=== PATIENT | female | born 1955 | race Caucasian/White ===

== ENCOUNTER 2025-01-31 07:23 | Observation (INO) | payer BC ==
[~2025-01-31] VITALS: Ht 152.4 cm; Wt 58.0 kg
[~2025-01-31 07:23] MED LIST: ALBU90OI INH; ASPI81CH PO; Inderal80 MG PO; TRAM50 PO
[2025-01-31] MEDS ORDERED: Diltiazem HCl 5 MG / ML 5ML Vial IV ONE (07:30)
[2025-01-31] MEDS ORDERED: NS 1,000 ML IV SCH (07:30)
[2025-01-31 07:38] LABS: BASOPHILS ABSOLUTE AUTO 0.07 K/mm3 (0.00-0.23); BASOPHILS PERCENT AUTO 1 % (0-2); EOSINOPHILS ABSOLUTE AUTO 0.09 K/mm3 (0.00-0.68); EOSINOPHILS PERCENT AUTO 1 % (0-6); Hematocrit 40.3 % (33.0-51.0); Hemoglobin 13.4 g/dL (11.5-16.0); IMMATURE GRAN ABSOLUTE AUTO 0.03 K/mm3 (0.00-0.10); IMMATURE GRAN PERCENT AUTO 0 % (0-1); LYMPHOCYTES ABSOLUTE AUTO 4.18 K/mm3 (0.84-5.20); LYMPHOCYTES PERCENT AUTO 29 % (21-46); MONOCYTES ABSOLUTE AUTO 0.74 K/mm3 (0.16-1.47); MONOCYTES PERCENT AUTO 5 % (4-13); Mean Corpuscular HGB Conc 33.3 g/dL (31.5-36.5); Mean Corpuscular Volume 93 fL (80-100); NEUTROPHILS ABSOLUTE AUTO 9.32 K/mm3 (1.96-9.15); NEUTROPHILS PERCENT AUTO 65 % (41-73); NRBC ABSOLUTE 0.00 K/mm3 (0.00-0.02); NRBC Auto 0.0 /100 WBC (0.0-0.2); Platelet Count 315 K/mm3 (150-400); RDW Coefficient Variation 12.8 % (11.7-14.2); RDW Standard Deviation 44.1 fL (35.1-46.3)
[2025-01-31 07:52] LABS: Anion Gap 7.0 mmol/L (3-11); Blood Urea Nitrogen 10.0 mg/dL (8-24); CO2, Blood 29.0 mmol/L (21-32); Calcium, Blood 8.7 mg/dL (8.5-10.1); Chloride, Blood 103.0 mmol/L (98-108); Creatinine, Blood 0.71 mg/dL (0.40-1.00); Glucose, Blood 121.0 mg/dL (70-99); Potassium, Blood 3.3 mmol/L (3.5-5.5); Sodium, Blood 136.0 mmol/L (136-145)
[2025-01-31] MEDS ORDERED: NS 1,000 ML IV ONE (12:04)
[2025-01-31] MEDS ORDERED: BUDESONIDE-FO10.2 G2 INH (12:55)
[2025-01-31] MEDS ORDERED: LISINOPRIL-HCT1 EAC1 PO (12:56)
[2025-01-31] MEDS ORDERED: MELO7.5 PO (12:56)
[2025-01-31 13:38] VITALS: BP 153/93
[2025-01-31] MEDS ORDERED: Formoterol/Mometasone MDI 5/200 mcg 13 GM INH SCH (14:25)
[2025-01-31 16:12] VITALS: BP 158/93
--- NOTE | 2025-01-31 18:44 | NUR ---
ADMIT NOTE/SHIFT SUMMARY PT A&OX4, VSS. PT STATES HER BREATHING IS SO MUCH BETTER AFTER ADENOSINE IN ER. TELEMETRY SHOWS NSR, HR 80'S-90'S. DENIES CP. ECHO SCHEDULED FOR AM. FAMILY IN ROOM MOST OF SHIFT. PT DENIES ANY NEEDS. ORIENTED TO ROOM, CALL LIGHT. RESTING IN BED, CALL LIGHT IN REACH.
[2025-01-31] MEDS ORDERED: Misc. Inpatient Respiratory Med INH SCH (20:00)
[2025-01-31] MEDS ORDERED: Albuterol 2.5 MG/3 ML VIAL INH PRN (20:00)
[2025-01-31 20:10] VITALS: BP 132/77
[2025-01-31 23:29] VITALS: BP 112/64
[2025-02-01 03:26] LABS: BASOPHILS ABSOLUTE AUTO 0.05 K/mm3 (0.00-0.23); BASOPHILS PERCENT AUTO 1 % (0-2); EOSINOPHILS ABSOLUTE AUTO 0.05 K/mm3 (0.00-0.68); EOSINOPHILS PERCENT AUTO 1 % (0-6); Hematocrit 35.4 % (33.0-51.0); Hemoglobin 11.9 g/dL (11.5-16.0); IMMATURE GRAN ABSOLUTE AUTO 0.01 K/mm3 (0.00-0.10); IMMATURE GRAN PERCENT AUTO 0 % (0-1); LYMPHOCYTES ABSOLUTE AUTO 2.78 K/mm3 (0.84-5.20); LYMPHOCYTES PERCENT AUTO 34 % (21-46); MONOCYTES ABSOLUTE AUTO 0.51 K/mm3 (0.16-1.47); MONOCYTES PERCENT AUTO 6 % (4-13); Mean Corpuscular HGB Conc 33.6 g/dL (31.5-36.5); Mean Corpuscular Volume 94 fL (80-100); NEUTROPHILS ABSOLUTE AUTO 4.78 K/mm3 (1.96-9.15); NEUTROPHILS PERCENT AUTO 59 % (41-73); NRBC ABSOLUTE 0.00 K/mm3 (0.00-0.02); NRBC Auto 0.0 /100 WBC (0.0-0.2); Platelet Count 276 K/mm3 (150-400); RDW Coefficient Variation 12.9 % (11.7-14.2); RDW Standard Deviation 44.4 fL (35.1-46.3)
[2025-02-01 03:41] LABS: Anion Gap 7.0 mmol/L (3-11); Blood Urea Nitrogen 12.0 mg/dL (8-24); CO2, Blood 28.0 mmol/L (21-32); Calcium, Blood 8.7 mg/dL (8.5-10.1); Chloride, Blood 105.0 mmol/L (98-108); Creatinine, Blood 0.64 mg/dL (0.40-1.00); Glucose, Blood 76.0 mg/dL (70-99); Magnesium, Blood 2.3 mg/dL (1.6-2.4); Potassium, Blood 3.7 mmol/L (3.5-5.5); Sodium, Blood 136.0 mmol/L (136-145)
[2025-02-01 03:46] VITALS: BP 112/71
--- NOTE | 2025-02-01 05:31 | NUR ---
SHIFT SUMMARY PT ALERT AND ORIENTED X 4. DAUGHTER AT BEDSIDE THIS SHIFT. PT IN NSR WITH HR IN 50S-70S. DENIES CP/PRESSURE. PT DENIES SOB. PT REMAINE ON RA WITH SPO2 >90%. VSS. PT DENIES PAIN. ECHO TO BE DONE THIS AM WITH POSSIBLE DISCHARGE. PT WITH CALL BLAIR WITHIN REACH. ABLE TO MAKE NEEDS KNOWN.
[2025-02-01 07:30] VITALS: BP 113/66
--- NOTE | 2025-02-01 08:53 | NUR ---
ASSUMPTION OF CARE: PATIENT IS A/O X 4 ABLE TO MAKE NEEDS KNOWN, AUDIENCE DEVELOPMENT MANAGER ALREADY BEEN BY AND OBTAINED ECHO, PATIENT HAS BEEN SBA WITH DAUGHTER TO BATHROOM, ENDORSES HUGE IMPROVEMENT TO EXERTION AND IMPROVING WEAKNESS, TO BE APPEARING RESOLVED. DENIES CHEST PAIN PRESSURE PALPATIATIONS OR SOB AT REST. NO ACUTE CONCERNS FROM THIS RN PLAN OF CARE CONTINUES.
[2025-02-01] MEDS ORDERED: Enoxaparin 40 MG/0.4 ML SYR SC SCH (09:00)
[2025-02-01 11:38] VITALS: BP 143/88
[2025-02-01] MEDS ORDERED: TIAZAC PO (12:58)
== END 2025-02-01 13:25 | disposition home or self-care (01) ==
LOC: ER 07:23 → PCU 07:24
PROVIDERS: Student in an Organized Health Care Education/Training Program; ADMIT Family Medicine
DX: I47.10 Supraventricular tachycardia, unspecified (principal); E87.6 Hypokalemia; D72.829 Elevated white blood cell count, unspecified; I10 Essential (primary) hypertension; J45.909 Unspecified asthma, uncomplicated; E78.5 Hyperlipidemia, unspecified; M19.90 Unspecified osteoarthritis, unspecified site; E03.9 Hypothyroidism, unspecified; E11.9 Type 2 diabetes mellitus without complications; Z85.3 Personal history of malignant neoplasm of breast; Z79.1 Long term (current) use of non-steroidal anti-inflammatories (NSAID); Z79.82 Long term (current) use of aspirin; Z79.899 Other long term (current) drug therapy; Z88.2 Allergy status to sulfonamides
CPT/HCPCS: 36415; 71046; 71260; 80048; 83735; 83880; 84443; 84484; 85025; 85379; 93005; 93010; 93306; 94760; 96361; 96372; 96374; 96375; 99285-25; A9270; G0378; J0153; J1650; J7030; Q9967